=== PATIENT | female | born 1965 ===

== ENCOUNTER 2019-01-18 01:40 | Observation (INO) | payer OTHER ==
[2019-01-18] VITALS (16 sets, daily range): BP systolic 89–113; BP diastolic 55–76
[~2019-01-18] VITALS: Ht 170.2 cm; Wt 91.6 kg
[~2019-01-18 01:40] MED LIST: ASPI-764 PO; CARB-82 PO; LITC450 PO; LITH300T18 PO; MORP-183 PO; OXYC15TA79 PO; OXYC1TAB78 PO; OXYM20TA PO; PREG150C33 PO; SERT-181 PO; TOPI-121 PO; TRAZ100T31 PO; ZIPR80CA PO; [UNRECOGNIZED DRUG - CODE] TD
[2019-01-18] MEDS ORDERED: ROPIVACAINE 0.2% 400 MG/200ML 250 ML CONINFUS ONE (13:40)
[2019-01-18 14:07] LABS: PLATELET COUNT, AUTOMATED 267 K/uL (150-450)
[2019-01-18] MEDS ORDERED: NORMOSOL R SOLN(*) 1000 ML BAG 1,000 ML IV PRN (14:20)
[2019-01-18] MEDS ORDERED: ceFAZolin(*) 2GM/D5W 50ML 50 ML IVPB ONE (14:20)
[2019-01-18] MEDS ORDERED: MIDAZOLAM 2 MG/2 ML VIAL IVP PRN (14:20)
[2019-01-18] MEDS ORDERED: FAMOTIDINE 20 MG TAB PO ONE (14:20)
[2019-01-18] MEDS ORDERED: LIDOCAINE/SOD BICARB 8.4% SYR ID ONE (14:20)
--- NOTE | 2019-01-18 14:23 | EKG ---
FACILITY: PATIENT NAME: RUDOLPH MELENDEZ : [id number] MR: [id number] V: [id number] EXAM DATE: ORDERING PHYSICIAN: MARY VIVAS TECHNOLOGIST: Test Reason : pre-op Blood Pressure : / mmHG Vent. Rate : 077 BPM Atrial Rate : 077 BPM P-R Int : 150 ms QRS Dur : 090 ms QT Int : 418 ms P-R-T Axes : 016 009 002 degrees QTc Int : 473 ms Normal sinus rhythm Nonspecific ST and T wave abnormality Prolonged QT Abnormal ECG Confirmed by Vinay Mcgill ([id number]) on 01/19/2019 1:09:19 AM Referred By: Confirmed By:Vinay Savage
[2019-01-18] MEDS ORDERED: ROPIVACAINE 0.2% 20 ML VIAL ONE ×2 (14:29→16:30)
[2019-01-18] MEDS ORDERED: BACITRACIN OINT 15 GM TUBE TP ONE (14:29)
[2019-01-18] MEDS ORDERED: KCL (*) 20 MEQ/100 ML PREMIX 100 ML IV SCH (14:50)
[2019-01-18] MEDS: KCL (*) 20 MEQ/100 ML PREMIX 100 ML IV SCH ×2 (15:13→17:25)
[2019-01-18] MEDS ORDERED: MIDAZOLAM 2 MG/2 ML VIAL ONE (15:42)
[2019-01-18] MEDS ORDERED: ONDANSETRON 4 MG/2 ML VIAL ONE (16:30)
[2019-01-18] MEDS ORDERED: ROPIVACAINE 0.5% 20 ML VIAL ONE (16:30)
[2019-01-18] MEDS ORDERED: DEXAMETHASONE SOD PHOS 10MG/ML ONE (16:30)
[2019-01-18] MEDS ORDERED: PROPOFOL EMUL(*) 10MG/ML 20 ML 20 ML ONE (16:30)
[2019-01-18] MEDS ORDERED: fentaNYL CITR 100 MCG/2 ML AMP ONE (16:57)
[2019-01-18] MEDS ORDERED: MAGNESIUM HYDROXIDE* 30ML UDCP PO PRN (17:05)
[2019-01-18] MEDS ORDERED: FLUSH 10 ML SYR IVP PRN (17:05)
[2019-01-18] MEDS ORDERED: MAGNESIUM CITRATE 300 ML BTL PO PRN (17:05)
[2019-01-18] MEDS ORDERED: BISACODYL 10 MG SUPP PR PRN (17:05)
[2019-01-18] MEDS ORDERED: diphenhydrAMINE 25 MG CAP PO PRN (17:05)
[2019-01-18] MEDS ORDERED: ACETAMINOPHEN 500 MG TAB PO PRN (17:05)
[2019-01-18] MEDS ORDERED: KETOROLAC 30 MG/ML VIAL IVP PRN (17:05)
[2019-01-18] MEDS ORDERED: ONDANSETRON 4 MG/2 ML VIAL IVP PRN (17:05)
[2019-01-18] MEDS ORDERED: PROMETHAZINE 25 MG/ML 1 ML AMP IVP PRN (17:05)
[2019-01-18] MEDS ORDERED: KCL/D5LR 20 MEQ/1000 ML PREMIX 1,000 ML IV PRN (17:05)
--- NOTE | 2019-01-18 17:18 | OPERATIVE REPORT 1 ---
EVENT DATE: January 18, 2019 SURGEON: Robert Painter MD OILER AND GREASER: Dmitri Rubio PA-C ANESTHESIOLOGIST: Arnulfo Buckley MD ANESTHESIA: General PREOPERATIVE DIAGNOSIS Syndesmotic disruption with bimalleolar ankle fracture. POSTOPERATIVE DIAGNOSIS Syndesmotic disruption with bimalleolar ankle fracture. PROCEDURE PERFORMED Open reduction, internal fixation syndesmosis and open reduction, internal fixation medial malleolus. ESTIMATED BLOOD LOSS Minimal. FLUID Minimal. DESCRIPTION OF PROCEDURE Patient was brought to the operating room and placed in a supine position. A bump was placed under her right hip, and the right lower extremity was prepped and draped in the normal sterile fashion using Prevail, a sterile stockinette, sterile U-drape, and sterile extremity drape placed over the lower extremities. Stockinette was incised right above the knee and held with a Coban. Esmarch was then used to exsanguinate the lower extremity, and the tourniquet was turned up to 300 mmHg. I first started with the reduction of the syndesmosis. A small incision was made directly over the fibula on the lateral side. Skin was incised with a 15 blade down to the subcutaneous tissue. The subcutaneous tissue was bluntly dissected down to the syndesmosis. I was able to actually go into the syndesmosis and removed any of the ligament that actually would be blocking the reduction. We used a rongeur to do that. I was able to clean the syndesmosis out. With this, I then made an incision over the medial malleolus where we were going to do the reduction, but I also opened it up so I could place a reduction clamp across it. I placed a two-point reduction clamp across it, and under fluoroscopy and direct visualization of the syndesmosis and palpation with my finger, I was able to reduce the syndesmosis down to what I felt was the anatomic position. Once I had that in the anatomic position, I placed two 4.5 large fragment screws across complete four cortices in a non- lagging manner. Once I had both screws across without any issue, I brought fluoroscopy in in AP and lateral and found to have excellent reduction of syndesmosis and excellent placement of the screws. I then turned my attention to the medial malleolus. From this reduction actually on x-ray, the medial malleolus was almost completely reduced. I then opened it up and cleaned out the fracture site using a rongeur. I had done a two-point reduction to reduce the medial malleolus and get some compression across it. There was a lot of comminution, and actually it was a much smaller piece than it seemed on x-ray, so the first screw I placed across was a 2.7 screw lagging it using a 2.7/2.0 technique, placing 2.7 screw across it and holding it in position. There, I went posteriorly to it and was able to get actually a 3.5 screw lagging it. Again, this was all Synthes equipment. First was a 2.7 and then was a 3.5 and a lag. I brought in fluoroscopy in the AP and lateral and found to have anatomic reduction of the medial malleolus, the syndesmosis, and on lateral, I had the reduction appropriately. It was closed using 3-0 Monocryl. At this time, it was felt that I had to use tolu due to the fact that there was such significant swelling that I was not sure a plastic surgical closure would actually hold. Therefore, I used a stapler to close the outer wound. Adaptic, 4 x 4's bulky dressing. Patient went to recovery. No complications. GABINO
--- NOTE | 2019-01-18 17:19 | RADIOLOGY IMAGING REPORT ---
FACILITY: [facility] PATIENT NAME: Carol Colvin : 1965 MR: [id number] V: [id number] EXAM DATE: ORDERING PHYSICIAN: ISHAAN LOYOLA TECHNOLOGIST: Location: [facility] Patient: Carol Colvin : 1965 Visit/Account:[id number] Date of Sevice: 01/18/2019 Exam type: C-ARM FLUORO 1 HR History: R ANKLE ORIF Comparison: None. Findings: Numerous intraoperative fluoroscopic spot views were submitted demonstrating open reduction internal fixation of the right ankle. Final images demonstrate two metallic screws traversing the distal righ t fibula and tibia and two metallic screws traversing the right medial malleolus. The total dose are a product was 0.19 98 Perez per centimeter squared IMPRESSION: 1. As above Report Dictated By: Kenya Robertson MD at 01/18/2019 5:13 PM Report E-Signed By: Kenya Robertson MD at 01/18/2019 5:15 PM WSN:[id number]
[2019-01-18] MEDS: HYDROmorphone HCL 2 MG/ML SDV ONE (17:27)
[2019-01-18] MEDS ORDERED: TOPIRAMATE 100 MG TAB PO SCH (21:00)
[2019-01-18] MEDS: traZODone HCL 50 MG TAB PO SCH ×2 (21:00→22:18)
[2019-01-18] MEDS ORDERED: ZIPRASIDONE 20 MG CAP PO SCH (21:00)
[2019-01-18] MEDS ORDERED: SERTRALINE HCL 50 MG TAB PO SCH (21:00)
--- NOTE | 2019-01-18 21:54 | Hospitalist Consultation ---
History of Present Illness Requesting Physician Dr Painter Reason for Consult Management medical comorbidities. Chief Complaint R ankle Fx History of Present Illness 53F admitted after ORIF of R ankle. PMHx significant for anxiety, bipolar depression. Underwent ORIF with Dr Painter tolerated procedure well which went without complication. History Problems: (1) Generalized anxiety disorder Status: Chronic (2) Bipolar disorder Status: Chronic Home Meds Reported Medications Morphine Sulfate (MS CONTIN) 30 Mg Tablet.er, 30 MG PO BID PRN for PAIN 01/17/19 Oxycodone Hcl 15 Mg Tab (OXYCODONE HCL 15 MG TAB) 15 Mg Tablet, 15 MG PO 5XD PRN for PAIN, TAB 01/17/19 Trazodone Hcl (TRAZODONE HCL) 100 Mg Tablet, 200 MG PO QHS, TAB 10/30/15 Sertraline Hcl (SERTRALINE HCL) 100 Mg Tablet, 1.5 TAB PO HS, TAB 10/30/15 Ziprasidone Hcl (GEODON) 80 Mg Capsule, 2 TAB PO HS, CAPSULE 10/30/15 Topiramate (TOPAMAX) 100 Mg Tablet, 1 TAB PO HS 10/30/15 Pregabalin (LYRICA) 150 Mg Capsule, 150 MG PO BID, CAPSULE 10/30/15 Carbamazepine (TEGRETOL) 200 Mg Tablet, 1 TAB PO HS 10/30/15 Discontinued Reported Medications [place] Carbonate (LITHIUM CARBONATE) 450 Mg Tabcr, 450 MG PO BID 04/22/16 Oxymorphone Hcl (OXYMORPHONE HCL) 20 Mg Tab.er.12h, 20 MG PO Q12H PRN for PAIN, #4 0 Refills 11/06/15 Oxycodone Hcl/Acetaminophen (OXYCODONE-ACETAMINOPHEN 10-325) 1 Each Tablet, 1 EACH PO Q5H, #10 0 Refills 10/30/15 Discontinued Scripts Aspirin (ASPIRIN EC) 325 Mg Tablet., 325 MG PO QDAY, #30 TAB Prov:CITLALLI JAIME MD 04/24/16 Allergies: Coded Allergies: meperidine (Verified Allergy, Severe, ITCHING, 10/30/15) Patient History: FH: COPD (chronic obstructive pulmonary disease) BROTHER OR SISTER FH: aneurysm FATHER, FH: diabetes mellitus PATERNAL GRANDMOTHER FH: stroke MATERNAL GRANDMOTHER, GI disorders MOTHER Hx Smoking: Yes Smoking Status: Former Smoker When Quit Tobacco?: 2 years Caffeine Intake: Soda Caffeine/Cups Per Day: 4 cans Mt. Dew Hx Alcohol Use: No Hx Substance Use Disorder: No History of IV Drug Use: No Review of Systems All Systems Reviewed/Normal: Yes, Except as Noted Constitutional: No Fever Respiratory: No Shortness of Breath Gastrointestinal: No Nausea, No Vomiting Exam Vital Signs Vital Signs Date Time Temp Pulse Resp B/P (MAP) Pulse Ox O2 Delivery O2 Flow Rate FiO2 01/18/19 20:30 98.2 01/18/19 20:15 106/70 (82) 01/18/19 20:00 77 93 Nasal Cannula 01/18/19 19:35 1.0 01/18/19 18:15 16 General Appearance: Alert, Awake, No Acute Distress Neuro: No Gross deficits Cardiovascular: Normal Rhythm & Peripheral Pulses Respiratory: No Respiratory Distress Extremities: Soft and Non Tender, Warm, Pulses, Perfused; No Edema Medical Decision Making Data Points Result Diagram: 01/18/19 1358 01/18/19 2718 Assessment and Plan Problems: (1) Generalized anxiety disorder Status: Chronic Assessment & Plan: Continue chronic sertraline. (2) Bipolar disorder Status: Chronic Assessment & Plan: Continue chronic Geodon, Tegretol, topiramate, trazodone. (3) Status post ORIF of fracture of ankle Assessment & Plan: Management per primary. No anticoagulation needed in average risk patient with ankle surgery. Venous Thromboembolism Antithrombotics Is Pt On Any Antithrombotics?: No Exam Sepsis Risk: No Definite Risk MCEKNZIE NESSA MAYORGA DO Jan 18, 2019 21:54
[2019-01-18] MEDS: PREGABALIN 150 MG CAPSULE PO SCH (22:17)
[2019-01-18] MEDS ORDERED: carBAMazepine 200 MG TAB ONE (22:21)
[2019-01-18] MEDS: oxyCODON/ACET (*)5/325MG (CII) 1 TAB TAB PO PRN (23:16)
[2019-01-18] MEDS: ceFAZolin(*) 1 GM VIAL 1 GM in NS(*) 0.9% 100 ML MINI-BAG 100 ML IVPB SCH (23:18)
[2019-01-19] VITALS (16 sets, daily range): BP systolic 81–103; BP diastolic 50–60; Ht 170.2 cm; Wt 91.6 kg
[2019-01-19] MEDS: oxyCODON/ACET (*)5/325MG (CII) 1 TAB TAB PO PRN ×3 (05:43→14:33)
[2019-01-19] MEDS: ceFAZolin(*) 1 GM VIAL 1 GM in NS(*) 0.9% 100 ML MINI-BAG 100 ML IVPB SCH ×2 (06:40→15:18)
--- NOTE | 2019-01-19 07:41 | DISCHARGE SUMMARY ---
HOSPITAL COURSE On 01/18/2019 the patient came into the hospital, underwent ORIF syndesmosis and ORIF medial malleolus without any difficulty. She had a general anesthesia with a popliteal catheter and a saphenous single-shot block. Overnight, she did extremely well and had absolutely no difficulties with pain. She is a prior pain management patient and has a contract at home. She wanted to stay the night just to make sure that she could get her balance and work with physical therapy. Postoperative day #1 she did extremely well. She had already gotten up, gotten to the bathroom and was able to move around on her own. She worked with physical therapy today and when she passed physical therapy, she was discharged to home on her home medications with her home pain management system. She is nonweightbearing x8 weeks. She can leave the dressing on until I see her back in the office and with any problems she is to call the office. I will see her back in 2 weeks in the office. GABINO
[2019-01-19] MEDS ORDERED: NS(*) 0.9% 1000 ML BAG 1,000 ML IV ONE (08:10)
[2019-01-19 08:23] LABS: PLATELET COUNT, AUTOMATED 238 K/uL (150-450)
[2019-01-19] MEDS: PREGABALIN 150 MG CAPSULE PO SCH (09:14)
[2019-01-19] MEDS ORDERED: ENOXAPARIN 40 MG/0.4ML SYR SC SCH (09:35)
[2019-01-19] MEDS: KCL (*) 20 MEQ/100 ML PREMIX 100 ML IV SCH ×2 (10:17→13:25)
--- NOTE | 2019-01-19 10:58 | NUR ---
This Physical Therapist or Palliative Care Nurse was present for the entire physical therapy session directing the services, making the skilled judgement, and was not engaged in treating another patient or doing another task at the same time as the treatment session. Addendum: 01/19/19 at 1100 by NASIR HARKINS PT Amended: Links added.
--- NOTE | 2019-01-19 11:26 | Hospitalist Progress Note ---
Subjective Progress Notes Subjective She was admitted s/p ankle ORIF. She had no acute events overnight. She wants to go home today. Patient Complains of: Cardiovascular: No: Chest Pain Respiratory: No: Shortness of Breath Physical Exam Vital Signs Date Time Temp Pulse Resp B/P (MAP) Pulse Ox O2 Delivery O2 Flow Rate FiO2 01/19/19 10:00 103/59 (74) 01/19/19 08:42 63 97 01/19/19 07:38 97.8 16 Nasal Cannula 0.5 Intake and Output 01/19/19 06:59 Intake Total 1950 ml Output Total 250 ml Balance 1700 ml IV Total 1950 ml Output Urine Total 250 ml # Voids 5 General Appearance: Alert, Awake, No Acute Distress, Afebrile Neuro: No Gross deficits Cardiovascular: Regular Rate and Rhythm Respiratory: No Respiratory Distress, Clear to Auscultation GI: Soft and Non-Tender Extremities: Warm, Perfused Psych: Alert & Oriented X3, Appropriate Mood & Affect Result Diagram: 01/19/1981701/19/19817 Assessment and Plan Problems: (1) Status post ORIF of fracture of ankle Assessment & Plan: Management per primary. Will place the patient on Lovenox injections likely for one month. Lovenox is only anticoagulation medication that does not interact with Tegretol. (2) Hypokalemia Status: Acute Assessment & Plan: Her potassium was 2.4 pre-operatively. She is now 2.7 this morning. She reports history of chronically low potassium. She will receive 2 K- Riders, recheck level this afternoon. If level is acceptable she will go home. She will discharge with oral supplementation and follow up with PCP on Wednesday. (3) Generalized anxiety disorder Status: Chronic Assessment & Plan: Continue chronic sertraline. (4) Bipolar disorder Status: Chronic Assessment & Plan: Continue chronic Geodon, Tegretol, topiramate, trazodone. Exam Sepsis Risk: No Definite Risk THIERNO PINEDA [facility] Jan 19, 2019 11:26
[2019-01-19] MEDS ORDERED: ENOX40DI8 SQ (11:30)
[2019-01-19] MEDS ORDERED: POTASSIUM CHL 20 MEQ TABCR PO ONE (11:30)
[2019-01-19] MEDS ORDERED: POTA20TA94 PO (11:30)
--- NOTE | 2019-01-19 17:10 | NUR ---
Physical Therapy Impression PT goals met with stairs address safely with NWB during initial visit. NO further visits planned and pt ready for discharge home. Physical Therapy Goals Met with initial visit; no further visits planned 1. Pt to be Modified indep with bed mobility and supine to/from sit trnsfrs 2. Pt to be SBA/Mod indep with sit to/from stand transfers with proper placement of knee scooter for safety. 3. Pt to ambulate with knee scooter x 100' with SBA for safety with turns 4. Pt to complete butt bump up/down 4 steps with single rail and come to stand at top of stairs with Mod assist of one. Patient's Goals
== END 2019-01-19 16:33 | disposition home or self-care (01) ==
LOC: OR 01:40 → MED 18:14
PROVIDERS: ADMIT Orthopaedic Surgery; ATTEND Orthopaedic Surgery
DX: S82.841A Displaced bimalleolar fracture of right lower leg, initial encounter for closed fracture (principal); F41.9 Anxiety disorder, unspecified; F31.9 Bipolar disorder, unspecified; E87.6 Hypokalemia
CPT/HCPCS: 27814; 36415; 76000; 76942; 83735; 85025; 93005; 96372; 97116; 97162; 97530; C1713; G0378; J0690; J1100; J1170; J1650; J1885; J2250; J2405; J2704; J2795; J3010; J3480; J7030; 82040; 82247; 82310; 82374; 82435; 82565; 82947; 84075; 84132; 84155; 84295; 84450; 84460; 84520

== ENCOUNTER 2019-02-10 00:21 | Day surgery (SDC) | payer OTHER ==
[2019-01-19 14:02] VITALS: Ht 167.6 cm; Wt 88.5 kg
[2019-02-09 21:43] LABS: PLATELET COUNT, AUTOMATED 270 K/uL (150-450)
[2019-02-10] VITALS (8 sets, daily range): BP systolic 80–134; BP diastolic 51–89
[~2019-02-10] VITALS: Ht 167.6 cm; Wt 88.5 kg
[~2019-02-10 00:21] MED LIST changes: +ENOX40DI8 SQ; +POTA20TA94 PO
[2019-02-10] MEDS ORDERED: LIDOCAINE/SOD BICARB 8.4% SYR ID ONE (06:00)
[2019-02-10] MEDS ORDERED: ceFAZolin(*) 2GM/D5W 50ML 50 ML IVPB ONE (06:00)
[2019-02-10] MEDS ORDERED: MIDAZOLAM 2 MG/2 ML VIAL IVP PRN (06:00)
[2019-02-10] MEDS ORDERED: FAMOTIDINE 20 MG TAB PO ONE (06:00)
[2019-02-10] MEDS ORDERED: ROPIVACAINE 0.2% 400 MG/200ML 250 ML CONINFUS ONE (06:00)
[2019-02-10] MEDS: NORMOSOL R SOLN(*) 1000 ML BAG 1,000 ML IV PRN ×2 (06:02→08:58)
[2019-02-10] MEDS ORDERED: LIDOCAINE 2% IV 100 MG/5ML SYR ONE (06:15)
[2019-02-10] MEDS ORDERED: fentaNYL CITR 250 MCG/5 ML AMP ONE (06:15)
[2019-02-10] MEDS ORDERED: PROPOFOL EMUL(*) 10MG/ML 20 ML 20 ML ONE (06:15)
[2019-02-10] MEDS ORDERED: ROPIVACAINE 0.5% 20 ML VIAL ONE (06:16)
[2019-02-10] MEDS ORDERED: DEXAMETHASONE SOD PHOS 10MG/ML ONE (06:16)
[2019-02-10] MEDS ORDERED: EPINEPHrine HCL 1 MG/ML AMP ONE (06:16)
[2019-02-10] MEDS ORDERED: ROPIVACAINE 0.2% 20 ML VIAL ONE ×2 (06:25→06:26)
[2019-02-10] MEDS ORDERED: BACITRACIN OINT 15 GM TUBE TP ONE (06:25)
[2019-02-10] MEDS ORDERED: LIDOCAINE MPF 1% 5 ML VIAL ONE (06:40)
[2019-02-10] MEDS ORDERED: DEXAMETHASONE SOD 4 MG/ML VIAL ONE (07:15)
[2019-02-10] MEDS ORDERED: ONDANSETRON 4 MG/2 ML VIAL ONE (07:16)
[2019-02-10] MEDS ORDERED: KETAMINE HCL 200 MG/20 ML MDV ONE (07:17)
[2019-02-10] MEDS ORDERED: KETOROLAC 30 MG/ML VIAL ONE (08:41)
[2019-02-10] MEDS ORDERED: fentaNYL CITR 100 MCG/2 ML AMP ONE (08:52)
[2019-02-10] MEDS ORDERED: ASPI-1471 PO (09:09)
--- NOTE | 2019-02-10 22:50 | OPERATIVE REPORT 1 ---
EVENT DATE: February 10, 2019 SURGEON: Robert Painter MD ANESTHESIOLOGIST: Guido Sloan MD ANESTHESIA: General. TIRE BUSTER: Dmitri Rubio PA-C PREOPERATIVE DIAGNOSIS Right failed open reduction and internal fixation, syndesmotic reconstruction, and ankle construction. POSTOPERATIVE DIAGNOSIS Right failed open reduction and internal fixation, syndesmotic reconstruction, and ankle construction. PROCEDURE PERFORMED Revision bimalleolar ankle fracture. ESTIMATED BLOOD LOSS Minimal. TOURNIQUET TIME Less than an hour. DESCRIPTION OF OPERATION Patient was brought to the operating room and placed in supine position. She had a bump placed under her right hip line. Right lower extremity was prepped and draped in the normal sterile fashion using Prevail. Sterile stockinettes, sterile U-drape, and sterile extremity drape were placed on the lower extremity. Stockinette was incised right above the knee and held with Coban. Esmarch was then used to exsanguinate the lower extremity and the tourniquet turned up to 300 mmHg. At this point, we made the prior incision on the lateral malleolus. Skin was incised with a 15 blade down to subcutaneous tissue. Subcutaneous tissue was bluntly dissected all the way down to the new fracture site. When the new fracture site was identified, we were actually able to find the prior syndesmotic screws. They were both removed without any difficulty except the lower one as I removed it had been completely bent, which again goes completely with a weightbearing episode. The only way that this screw could have been bent is for her to have walked or stepped on this. Once that was removed, I then took a significant amount of time to remove any of the scarring that was around. This had already started to heal, so I was able to remove all the scar in the new fracture site, delineated out the fibula, bring the fibula back as close as I could to anatomic position, but I found that I could not get it just right under fluoroscopy. I felt the medial side was actually inhibiting that. I then turned my attention to the medial side. I used the prior incision. Skin was incised with a 15 blade down to subcutaneous tissue. Subcutaneous tissue was bluntly dissected down to the fracture. I was able to remove both screws without any difficulty. Once that was done, I was able to get the fibula over perfectly, and the medial malleolus came over, and I was able to use the plate now on the lateral aspect to reduce the rest of the alignment. Once that was done, and I brought her under fluoroscopy, I had the plate in the right position in the ankle fracture, the lateral malleolus in the right position, and the ankle mortise in the right position. I then locked down the plate using a nonlocking screw. Once that plate was attached and appropriate, I then locked distally. I put four to five screws distally. These were Synthes locking screws and a Synthes locking plate. I then locked it proximally two screws and then continued locking distally. Once I felt I had appropriate alignment and appropriate fixation, I then turned my attention to the medial side. Medial side actually reduced itself. I cleaned out the fracture, got rid of all the scarring that was present. I was able to use one of the prior screw holes, placed that same screw back in and getting a good compression, but then I placed a second newer screw using a 3.5/2.5 lag technique and using a 3.5 screw at this point. I brought fluoroscopy in, found to have excellent alignment of the medial malleolus on AP, lateral, and oblique. I actually checked the syndesmosis now due to the fact that the first injury was a syndesmotic injury. There was no laxity in the syndesmosis once I placed the plate proximally. At this point, I closed using 3-0 Monocryl and tolu, Adaptic 4 x 4's, and a big bulky Smiley dressing. Patient went to Recovery. No complications. GABINO
== END 2019-02-10 10:00 | disposition home or self-care (01) ==
LOC: OR 00:21
PROVIDERS: ATTEND Orthopaedic Surgery
DX: S82.841A Displaced bimalleolar fracture of right lower leg, initial encounter for closed fracture (principal)
CPT/HCPCS: 27814; 36415; 76000; 76942; 80156; 85025; C1713; J0171; J1100; J1885; J2001; J2250; J2405; J2704; J2795; J3010; J3490; 82040; 82247; 82310; 82374; 82435; 82565; 82947; 84075; 84132; 84155; 84295; 84450; 84460; 84520; J0690